=== PATIENT | male | born 1955 | race African-American/Black ===

== ENCOUNTER 2019-09-25 11:46 | Outpatient (CLI) | payer MEDICARE, SELFPAY ==
--- NOTE | ~2019-09-25 | XR_ITS ---
EXAMINATION: XR knee RT min 4V DATE: 09/25/2019 12:38 INDICATION: Osteoarthritis of the right knee TECHNIQUE: Weight bearing anteroposterior and [place], sunrise, and flexed lateral views of the rig ht knee were obtained COMPARISON: None. FINDINGS: Alignment is normal. No fracture. No joint effusion/layering lipohemarthrosis. Tricompartmental oste oarthritis with small marginal osteophytes in all 3 compartments and mild joint space narrowing in th e lateral compartment. Small enthesophytes at the anterior tibial tuberosity and along the anterior p atella. Soft tissues are unremarkable. IMPRESSION: 1. Lateral compartment predominant mild tricompartmental osteoarthritis at the right knee. Reviewed, dictated and finalized at location A.
== END 2019-09-25 11:47 | disposition home or self-care (01) ==
PROVIDERS: PCP Internal Medicine Infectious Disease; Visit Provider Internal Medicine Infectious Disease
DX: M17.11 Unilateral primary osteoarthritis, right knee (principal)
CPT/HCPCS: 73564

== ENCOUNTER 2019-11-29 13:48 | Outpatient (CLI) | payer MEDICARE, SELFPAY ==
--- NOTE | ~2019-11-29 | US_ITS ---
EXAMINATION: US venous doppler LE RT EXAM DATE: 11/29/2019 14:24 INDICATION: Right calf pain. TECHNIQUE: Multiple grayscale, color flow and Doppler images of the right lower extremity deep venous system were obtained and reviewed. There is no prior study for comparison. FINDINGS: The right common femoral, femoral and profunda veins demonstrate normal color flow, respira tory variation, augmentation and compressibility. Compressibility, color flow confirmed within the r ight popliteal, posterior tibial, peroneal, and greater saphenous veins. IMPRESSION: 1. No right lower extremity deep venous thrombosis. Reviewed, dictated and finalized at location A.
--- NOTE | ~2019-11-29 | XR_ITS ---
XR shoulder LT min 2V DATE: 11/29/2019 14:12 INDICATION: Left shoulder pain. Intermittent decrease in range of motion. No history of trauma. TECHNIQUE: 4 views COMPARISON: None FINDINGS: There is some prominent calcification of the rotator cuff consistent with chronic rotator c uff calcific tendinitis. There is moderate osteoarthritis at the left glenohumeral joint. Normal alig nment at the acromioclavicular and glenohumeral joints. No fracture, dislocation, periosteal reaction or bone destruction. IMPRESSION: Calcific tendinitis of the rotator cuff Moderate osteoarthritis of the left glenohumeral joint Reviewed, dictated and finalized at location B.
== END 2019-11-29 13:49 | disposition home or self-care (01) ==
PROVIDERS: PCP Internal Medicine Infectious Disease; Visit Provider Internal Medicine Infectious Disease
DX: M79.604 Pain in right leg (principal); M19.012 Primary osteoarthritis, left shoulder; M75.32 Calcific tendinitis of left shoulder
CPT/HCPCS: 73030; 93971

== ENCOUNTER 2022-05-07 08:26 | Outpatient (CLI) | payer MEDICARE, SELFPAY ==
--- NOTE | 2022-05-07 11:00 | NEURO_ITS ---
Impression: # Complains of pain and numbness in hands. Diabetic for over 7 years. # Bilateral Carpal Tunnel Syndrome. # No ulnar neuropathy. # Needle/EMG exam revealed neurogenic changes in bilateral APB. Motor Nerve Conduction Upper Extremities Median Nerve Conduction Velocity (m/sec) Terminal Latency (msec) Response Voltage(mV) Elbow-Wrist Wrist Elbow Wrist Right 56 4.5 2 2 Left 58 4.0 2 1 Ulnar Nerve Conduction Velocity (m/sec) Terminal Latency (msec) Response Voltage(mV) Above Elbow Below Elbow Wrist Above Elbow Below Elbow Wrist Right 58 2.8 5 6 Left 57 2.4 6 7 F-Wave Latency Median (ms) Ulnar (ms) Right 28.4 26.3 Left 29.0 26.6 Sensory Nerve Conduction Upper Extremities Median Nerve Stimulation Terminal Latency (msec) Wrist/Digit Response Voltage (uV) Wrist Right 4.3/4.1 24/29 Left 3.6/3.6 27/34 Ulnar Nerve Stimulation Terminal Latency (msec) Wrist/Digit Response Voltage (uV) Wrist Right 2.7 53 Left 2.4 68 Radial Nerve Terminal Latency (msec) Response Voltage(mV) Right 2.1 33 Left 2.5 29 Left Right Muscles Examined Fibrillation Fasciculation Scarcity Voltage Duration Left Right Left Right Left Right Left Right Left Right Deltoid Biceps X X Brachioradialis Triceps X X Pronator Teres X X Ext Indicis X X Ext Digitorum X X Abd Poll Brev Reduced Reduced >12ms >12ms X X 1st Dorsal Interosseus X X Abd Dig Min MTDD
== END 2022-05-07 08:27 | disposition home or self-care (01) ==
PROVIDERS: PCP Internal Medicine Infectious Disease; Visit Provider Internal Medicine Infectious Disease
DX: G62.9 Polyneuropathy, unspecified (principal); G56.03 Carpal tunnel syndrome, bilateral upper limbs
CPT/HCPCS: 95886; 95911